=== PATIENT | male | born 1995 | race Caucasian/White ===

== ENCOUNTER 2024-07-31 22:35 | Emergency (ER) | payer SELFPAY ==
[~2024-07-31] VITALS: Ht 172.7 cm; Wt 82.0 kg
[2024-07-31 22:41] VITALS: BP 132/86; PULSE 90; RESP 16; TEMP 97.7; O2SAT 96
[2024-07-31] MEDS: ONDANSETRON HCL 4MG/2ML INJ IV ONE (23:19)
[2024-07-31] MEDS: SODIUM CHLORIDE 0.9% 1,000 ML IV ONE (23:19)
[2024-08-01] MEDS ORDERED: SODIUM CHLORIDE 0.9% 1,000 ML IV ONE (00:30)
[2024-08-01 00:51] LABS: BASOPHILS % 0.3 % (0.0-2.0); HEMATOCRIT. 39.5 % (42.0-52.0); HEMOGLOBIN. 13.8 g/dL (14.0-18.0); LYMPHOCYTES % 56.4 % (20.0-50.0); MEAN CORPUSCULAR HEMOGLOBIN 33.3 pg (28.0-32.0); MEAN CORPUSCULAR VOLUME 95.2 fL (80.0-94.0); MEAN PLATELET VOLUME 8.4 fl (7.4-10.4); MONOCYTES % 5.3 % (2.0-8.0); PLATELET 341 x1000/uL (130-400); RED BLOOD CELL COUNT 4.15 mill/uL (4.7-6.1); RED CELL DISTRIBUTION WIDTH 13.9 % (11.6-14.6); WHITE BLOOD COUNT 6.6 x1000/uL (4.5-11.0)
[2024-08-01 02:28] LABS: CHLORIDE 106 mEq/L (98-107); POTASSIUM 3.5 mEq/L (3.5-5.1); SODIUM 144 mEq/L (136-145)
[2024-08-01 02:29] LABS: CARBON DIOXIDE 20 mEq/L (21-32)
[2024-08-01 02:30] LABS: CALCIUM 9.8 mg/dL (8.7-10.4)
[2024-08-01 02:34] LABS: CREATININE 0.8 mg/dL (0.6-1.3); GLUCOSE 111 mg/dL (70-105); UREA NITROGEN BLOOD 11 mg/dL (9-23)
== END 2024-08-01 05:43 | disposition home or self-care (01) ==
LOC: ER 22:35
DX: T51.0X1A Toxic effect of ethanol, accidental (unintentional), initial encounter (principal); F10.129 Alcohol abuse with intoxication, unspecified; G31.89 Other specified degenerative diseases of nervous system; G92.9 Unspecified toxic encephalopathy; X58.XXXA Exposure to other specified factors, initial encounter; Y90.8 Blood alcohol level of 240 mg/100 ml or more
CPT/HCPCS: 80320; 36415 ×2; 70450; 96374; 99285; 80048; 85025; J2405; J7030 ×2; Z7610 ×2; G0480